=== PATIENT | male | born 1975 | race American Indian/Alaskan Native ===

== ENCOUNTER 2020-07-17 20:27 | Emergency (ER) | payer SELFPAY ==
[2020-07-17] MEDS ORDERED: ZIPRASIDONE MESYLATE 20 MG VIAL IM PRN (20:38)
[2020-07-17] MEDS ORDERED: ZIPRASIDONE MESYLATE 20 MG VIAL IM ONE (20:38)
--- NOTE | 2020-07-17 21:23 | Emergency Department Report ---
ED Psych HPI - General Chief Complaint: Psych Stated Complaint: MH Time Seen by Provider: 07/17/20 20:37 Source: patient, police Mode of arrival: Ambulatory - History of Present Illness Initial Comments: Chief complaint: "I know I just need some help." HPI: This is a 44-year-old male with history of depression and polysubstance abuse who presents with acute intoxication of cocaine. Patient called police several times to his hotel room. He had paranoia. He felt as if unknown persons were attempting to steal from him. He also had auditory visual hallucinations witnessed by police officers. He finally admitted that he had been using cocaine all day. Abnormal behavior was also witnessed by hotel staff. He attempted to throw a large trash can toward hotel personnel. Patient states that he has a long history of cocaine use. He also uses alcohol. He lives with his father who also uses drugs. He keeps saying, "I know I need some help." He has not taken any psychiatric medication for depression in quite some time. He has been living in [place] for the last 5 years. His family lives in [place]. He returned to [place] from [place] in order to live with his father. He denies suicidal homicidal ideation. He did endorse auditory and visual hallucinations. According to electronic medical record, patient was seen at this emergency department in both November and February 2015 for abnormal behavior related to alcohol and cocaine use. Complaint: altered mental status, other (Auditory visual hallucinations with paranoia delusional thought pattern) -: Sudden, This afternoon Associated Psychiatric Symptoms: racing thoughts, auditory hallucinations, visual hallucinations, delusions History of same: Yes Quality: constant Improves With: none Worsens With: none Context: recent drug abuse, not taking psychiatric Associated Symptoms: denies other symptoms Treatments Prior to Arrival: other (Police transport to the emergency department) - Related Data Home Medications Medication Instructions Recorded Confirmed Last Taken FLUoxetine [Prozac] 20 mg PO DAILY 02/19/14 02/28/15 3 Months Ago ~11/28/14 traZODone [Desyrel] 50 mg PO QHS PRN 02/19/14 02/28/15 3 Months Ago ~11/28/14 Allergies Allergy/AdvReac Type Severity Reaction Status Date / Time No Known Allergies Allergy Verified 12/08/14 20:41 ED Review of Systems ROS: Stated complaint: MH Other details as noted in HPI Comment: All other systems reviewed and negative Constitutional: denies: fever, malaise Respiratory: denies: cough, shortness of breath Cardiovascular: denies: chest pain Psychiatric: depression, auditory hallucinations, visual hallucinations. denies: homicidal thoughts, suicidal thoughts ED Past Medical Hx - Past Medical History Previous Medical History?: Yes Hx Hypertension: No Hx Heart Attack/AMI: No Hx Psychiatric Treatment: Yes (Depression-no meds) Additional medical history: kidney failure - Surgical History Past Surgical History?: No - Social History Smoking Status: Never Smoker Substance Use Type: Alcohol, Cocaine - Medications Home Medications: Home Medications Medication Instructions Recorded Confirmed Last Taken Type FLUoxetine [Prozac] 20 mg PO DAILY 02/19/14 02/28/15 3 Months Ago History ~11/28/14 traZODone [Desyrel] 50 mg PO QHS PRN 02/19/14 02/28/15 3 Months Ago History ~11/28/14 ED Physical Exam - General Limitations: No Limitations General appearance: alert, in no apparent distress, anxious, other (Restless cooperative insightful) - Head Head exam: Present: atraumatic, normocephalic - Eye Eye exam: Present: normal appearance - ENT ENT exam: Present: mucous membranes moist - Neck Neck exam: Present: normal inspection, full ROM - Respiratory Respiratory exam: Present: normal lung sounds bilaterally. Absent: respiratory distress, wheezes, rales, rhonchi - Cardiovascular Cardiovascular Exam: Present: regular rate, normal rhythm, normal heart sounds. Absent: systolic murmur, diastolic murmur, rubs, gallop - GI/Abdominal GI/Abdominal exam: Present: soft, normal bowel sounds. Absent: distended, tenderness, guarding, rebound - Rectal Rectal exam: Present: deferred - Extremities Exam Extremities exam: Present: normal inspection - Neurological Exam Neurological exam: Present: alert, oriented X3 - Psychiatric Psychiatric exam: Present: depressed, agitated, anxious - Skin Skin exam: Present: warm, intact, normal color, other (Clammy skin). Absent: rash ED Course Vital Signs 07/17/20 21:35 Temperature 99.0 F Pulse Rate 105 H Respiratory 20 Rate Blood Pressure 138/93 O2 Sat by Pulse 96 Oximetry ED Medical Decision Making - Lab Data Result diagrams: 07/17/20 21:23 07/17/20 21:23 - Medical Decision Making History of depression with psychosis current clinical impressions: acute cocaine intoxication, acute drug-induced psychosis: Patient is cooperative insightful. 1013 form has been completed in order to expedite inpatient care. Patient is medically clear for psychiatric care. I have reviewed labs including CBC chemistry serum toxicology. All within norm al limits. Patient is medically clear for psychiatric care. Critical care attestation.: If time is entered above; I have spent that time in minutes in the direct care of this critically ill patient, excluding procedure time. ED Disposition Clinical Impression: Drug-induced psychotic disorder, Polysubstance abuse, Acute hyperactive cocaine intoxication delirium Disposition: [id number]/TX-[id number] ANOTHER TYPE HLTHCARE Is pt being admited?: No Does the pt Need Aspirin: No Condition: Stable
[2020-07-17 21:34] LABS: Basophils % (Auto) 0.6 % (0.0-1.8); Hematocrit 46.3 % (35.5-45.6); Hemoglobin 15.3 gm/dl (11.8-15.2); Lymphocytes % (Auto) 15.5 % (13.4-35.0); Mean Corpuscular HGB Conc 33 % (32-34); Mean Corpuscular Volume 83 fl (84-94); Monocytes # (Auto) 0.4 K/mm3 (0.0-0.8); Monocytes % (Auto) 6.8 % (0.0-7.3); Platelet Count 267 K/mm3 (140-440); Red Blood Count 5.56 M/mm3 (3.65-5.03); Red Cell Distribution Width 15.2 % (13.2-15.2)
[2020-07-17 21:55] LABS: Alanine Aminotransferase 29 units/L (7-56); Albumin 4.8 g/dL (3.9-5); BUN/Creatinine Ratio 12; Blood Urea Nitrogen 12 mg/dL (9-20); Calcium 9.3 mg/dL (8.4-10.2); Hemolysis Index 14
[2020-07-18 08:11] LABS: Bilirubin,Urine NEG (Negative); Blood,Urine NEG (Negative); Color,Urine Yellow (Yellow); Hyaline Casts,Urine 4 /LPF; Mucus,Urine 3+ /HPF
[2020-07-18 09:35] VITALS: BP 147/85
--- NOTE | 2020-07-18 10:10 | Consultation ---
History of Present Illness - Reason for Consult Consult date: 07/18/20 Reason for consult: MHE Requesting physician: IKER MOE - History of Present Psychiatric Illness Per ED Provider: This is a 44-year-old male with history of depression and polysubstance abuse who presents with acute intoxication of cocaine. Patient called police several times to his hotel room. He had paranoia. He felt as if unknown persons were attempting to steal from him. He also had auditory visual hallucinations witnessed by police officers. He finally admitted that he had been using cocaine all day. Abnormal behavior was also witnessed by hotel staff. He attempted to throw a large trash can toward hotel personnel. Patient states that he has a long history of cocaine use. He also uses alcohol. He lives with his father who also uses drugs. He keeps saying, "I know I need some help." He has not taken any psychiatric medication for depression in quite some time. He has been living in [place] for the last 5 years. His family lives in [place]. He returned to [place] from [place] in order to live with his father. He denies suicidal homicidal ideation. He did endorse auditory and visual hallucinations. PSYCH HPI Patient is a 44-year-old employed, single -[place] male who currently resides with his dad with past psychiatric history depression in the illicit drug use with no significant past medical history who presented to the ED for mental health evaluation after patient was picked up from hotel room. Patient stated that he just recently came about some money to someone outside left behind for him, but he wanted to flex and chew and hang out with women so he got himself out of her room, cocaine, and alcohol when he began drinking started to think about his mother and then became very agitated, somewhat destructive but did not threaten anyone neither was he suicidal. Patient reported feeling fine now, stated that he supposed to be at work, denies SI, HI or AVH at this time. Acknowledge cocaine use and requesting to go home. PAST PSYCHIATRIC HISTORY Diagnoses: Depression Suicide attempts or Self-harm behavior: none reported Prior psychiatric hospitalizations: none reported Substance Abuse history: cocaine, alcohol Previous psychiatric medications tried: Prozac Outpatient treatment: none reported PAST MEDICAL HISTORY: none reported Family Psychiatric History: None reported or documented SOCIAL HISTORY Marital Status: Single Living Arrangements: with dad Employment Status: employed Access to guns/weapons: none reported Education: 9th grade History of Abuse: none reported Legal History: none reported REVIEW OF SYSTEMS Constitutional: Negative for weight loss ENT: Negative for stridor Respiratory: Negative for cough or hemoptysis All other systems reviewed and are negative MENTAL STATUS EXAMINATION General Appearance and Behavior: Age appropriate, good hygiene, wearing appropriate clothes, good eye contact, cooperative polite with questioning. Cooperation: Participating/engaged Psychomotor Behavior: unremarkable and within normal limits Mood: Good Affect and affective range: congruent with mood Thought Process: Fluent/Logical, Thought Content: Within reality, Speech: Normal volume, Regular rate and rhythm, Intellectual Functioning: Average Suicidal Ideation: Denies SI Homicidal Ideation: Denies HI Impulse Control: Unimpaired Insight and Judgment: Normal insight and judgment, Memory: Normal, Attention: Normal, Orientation: Alert, oriented, Assessment and Plan - Psychiatric problem (1) Illicit drug use Current Visit: Yes Status: Acute Treatment Plan MEDICATIONS: Risks, benefits and alternatives of medications discussed with the patient, questions answered and consent obtained from patient. PSYCHOTHERAPY: Supportive psychotherapy provided MEDICAL: Per primary team DELIRIUM PRECAUTIONS: Please re-orient patient frequently, keep lights on during the day, and minimize benzodiazepines and opiates as these medications could worsen patient's confusion. REHABILITATION CONSTRUCTION SPECIALIST: DISPOSITION: Do Not Recommend acute inpatient psychiatric hospitalization at this time. Case discussed with Dr. Alejandro who agrees with current disposition LEGAL STATUS: 1013 rescinded FOLLOW-UP: Will follow Thank you for the consult. Please contact with any questions and/or concerns. Medications and Allergies Allergies Allergy/AdvReac Type Severity Reaction Status Date / Time No Known Allergies Allergy Verified 12/08/14 20:41 Home Medications Medication Instructions Recorded Confirmed Last Taken Type FLUoxetine [Prozac] 20 mg PO DAILY 02/19/14 02/28/15 3 Months Ago History ~11/28/14 traZODone [Desyrel] 50 mg PO QHS PRN 02/19/14 02/28/15 3 Months Ago History ~11/28/14 Active Meds: Active Medications Ziprasidone (Ziprasidone Mesylate 20 Mg Vial) 10 mg IM Q2H PRN PRN Reason: Agitation Mental Status Exam - Vital signs Last Vital Signs Temp 98.2 F 07/18/20 08:57 Pulse 68 07/18/20 08:57 Resp 18 07/18/20 08:57 BP 147/85 07/18/20 08:57 Pulse Ox 98 07/18/20 08:57 Results Result Diagrams: 07/17/20 21:23 07/17/20 21:23 Abnormal lab results 07/17/20 07/17/20 07/17/20 Range/Units 21:23 21:23 21:23 RBC 5.56 H (3.65-5.03) M/mm3 Hgb 15.3 H (11.8-15.2) gm/dl Hct 46.3 H (35.5-45.6) % MCV 83 L (84-94) fl MCH 27 L (28-32) pg Lymph # (Auto) 1.0 L (1.2-5.4) K/mm3 Seg Neutrophils % 77.1 H (40.0-70.0) % Carbon Dioxide 20 L (22-30) mmol/L Urine WBC (Auto) (0.0-6.0) /HPF Salicylates < 0.3 L (2.8-20.0) mg/dL Acetaminophen (10.0-30.0) ug/mL 07/17/20 07/18/20 Range/Units 21:23 Unknown RBC (3.65-5.03) M/mm3 Hgb (11.8-15.2) gm/dl Hct (35.5-45.6) % MCV (84-94) fl MCH (28-32) pg Lymph # (Auto) (1.2-5.4) K/mm3 Seg Neutrophils % (40.0-70.0) % Carbon Dioxide (22-30) mmol/L Urine WBC (Auto) 10.0 H (0.0-6.0) /HPF Salicylates (2.8-20.0) mg/dL Acetaminophen 5.0 L (10.0-30.0) ug/mL All other labs normal. Assessment and Plan - Psychiatric problem (1) Illicit drug use Current Visit: Yes Status: Acute
[2020-07-18 11:52] LABS: Amphetamine Screen,Urine Negative; Benzodiazepines Screen,Urine Negative; Cannabinoid Screen,Urine Negative; Methadone Screen,Urine Negative; Opiate Screen,Urine Negative
[2020-07-18 12:46] LABS: Cocaine Screen,Urine PRESUMPTIVE POSITIVE
== END 2020-07-18 17:00 | disposition home or self-care (01) ==
LOC: ED 20:27 → EEVIPCON 20:27 → ED 07-18 17:00
DX: F19.10 Other psychoactive substance abuse, uncomplicated (principal); F32.9 Major depressive disorder, single episode, unspecified; F14.921 Cocaine use, unspecified with intoxication delirium; Z79.899 Other long term (current) drug therapy; Z20.822 Contact with and (suspected) exposure to COVID-19
CPT/HCPCS: 36415; 80053; 80307; 81001; 85025; 87086; 96372; 99284; J3486; U0003; 80320; G0480

== ENCOUNTER 2020-07-20 04:39 | Emergency (ER) | payer SELFPAY ==
[2020-07-20 05:14] LABS: Basophils % (Auto) 0.9 % (0.0-1.8); Eosinophils % (Auto) 0.1 % (0.0-4.3); Hematocrit 41.8 % (35.5-45.6); Hemoglobin 13.7 gm/dl (11.8-15.2); Lymphocytes # (Auto) 1.2 K/mm3 (1.2-5.4); Lymphocytes % (Auto) 23.9 % (13.4-35.0); Mean Corpuscular HGB Conc 33 % (32-34); Mean Corpuscular Volume 83 fl (84-94); Monocytes # (Auto) 0.5 K/mm3 (0.0-0.8); Platelet Count 248 K/mm3 (140-440); Red Blood Count 5.04 M/mm3 (3.65-5.03); Red Cell Distribution Width 15.2 % (13.2-15.2)
[2020-07-20 05:32] LABS: Bacteria,Urine 1+ /HPF (Negative); Mucus,Urine 3+ /HPF
[2020-07-20 05:37] LABS: Alanine Aminotransferase 27 units/L (7-56); Albumin 4.6 g/dL (3.9-5); BUN/Creatinine Ratio 12; Blood Urea Nitrogen 12 mg/dL (9-20); Calcium 9.1 mg/dL (8.4-10.2); Hemolysis Index 2
[2020-07-20 05:59] LABS: Amphetamine Screen,Urine PRESUMPTIVE NEGATIVE; Benzodiazepines Screen,Urine PRESUMPTIVE NEGATIVE; Cannabinoid Screen,Urine PRESUMPTIVE NEGATIVE; Cocaine Screen,Urine PRESUMPTIVE POSITIVE; Methadone Screen,Urine PRESUMPTIVE NEGATIVE; Opiate Screen,Urine PRESUMPTIVE NEGATIVE
[2020-07-20 06:11] LABS: Color,Urine Yellow (Yellow)
--- NOTE | 2020-07-20 06:24 | Emergency Department Report ---
ED Psych HPI - General Chief Complaint: Psych Stated Complaint: MH Time Seen by Provider: 07/20/20 06:20 Source: patient, EMS Mode of arrival: Ambulatory - History of Present Illness Initial Comments: Patient states, "I was just coming down from a cocaine high and needed a place t o rest". He has no active complaints. According to the triage note he arrived with paranoia and anxiety. He admitted to recent cocaine use. No other information is apparently available in the triage note. Patient himself has no complaints. He is mentally competent. He is oriented and aware of the context of his visit. He has no paranoid ideation, homicidal ideation or thoughts of self-harm. He is requesting discharge. Psychiatric evaluation 07/18/2020: History of Present Illness - Reason for Consult Consult date: 07/18/20 Reason for consult: MHE Requesting physician: IKER MOE - History of Present Psychiatric Illness Per ED Provider: This is a 44-year-old male with history of depression and polysubstance abuse who presents with acute intoxication of cocaine. Patient called police several times to his hotel room. He had paranoia. He felt as if unknown persons were attempting to steal from him. He also had auditory visual hallucinations witnessed by police officers. He finally admitted that he had been using cocaine all day. Abnormal behavior was also witnessed by hotel staff. He attempted to throw a large trash can toward hotel personnel. Patient states that he has a long history of cocaine use. He also uses alcohol. He lives with his father who also uses drugs. He keeps saying, "I know I need some help." He has not taken any psychiatric medication for depression in quite some time. He has been living in [place] for the last 5 years. His family lives in [place]. He returned to [place] from [place] in order to live with his father. He denies suicidal homicidal ideation. He did endorse auditory and visual hallucinations. PSYCH HPI Patient is a 44-year-old employed, single -Italian male who currently resides with his dad with past psychiatric history depression in the illicit drug use with no significant past medical history who presented to the ED for mental health evaluation after patient was picked up from hotel room. Patient stated that he just recently came about some money to someone outside left behind for him, but he wanted to flex and chew and hang out with women so he got himself out of her room, cocaine, and alcohol when he began drinking started to think about his mother and then became very agitated, somewhat destructive but did not threaten anyone neither was he suicidal. Patient reported feeling fine now, stated that he supposed to be at work, denies SI, HI or AVH at this time. Acknowledge cocaine use and requesting to go home. Complaint: other -: hour(s) Associated Psychiatric Symptoms: other (Paranoid ideations) History of same: Yes Quality: resolved prior to arrival (Resolved prior to my encounter) Improves With: none Worsens With: drug use Context: recent drug abuse Associated Symptoms: denies other symptoms Treatments Prior to Arrival: none - Related Data Home Medications Medication Instructions Recorded Confirmed Last Taken FLUoxetine [Prozac] 20 mg PO DAILY 02/19/14 02/28/15 3 Months Ago ~11/28/14 traZODone [Desyrel] 50 mg PO QHS PRN 02/19/14 02/28/15 3 Months Ago ~11/28/14 Previous Rx's Medication Instructions Recorded Last Taken Type Fluconazole [Diflucan TAB] 100 mg PO QDAY #3 tablet 07/20/20 Unknown Rx cefUROXime [Ceftin] 250 mg PO Q12H #14 tablet 07/20/20 Unknown Rx Allergies Allergy/AdvReac Type Severity Reaction Status Date / Time No Known Allergies Allergy Verified 12/08/14 20:41 ED Review of Systems ROS: Stated complaint: MH Other details as noted in HPI Constitutional: denies: chills, fever Eyes: denies: eye pain, eye discharge, vision change ENT: denies: ear pain, throat pain Respiratory: denies: cough, shortness of breath Cardiovascular: denies: chest pain, palpitations Endocrine: no symptoms reported Gastrointestinal: denies: abdominal pain, nausea, diarrhea Genitourinary: denies: urgency, dysuria Musculoskeletal: denies: back pain, joint swelling, arthralgia Skin: denies: rash, lesions Neurological: denies: headache, weakness, paresthesias Psychiatric: denies: anxiety, depression, auditory hallucinations, visual hallucinations, suicidal thoughts Hematological/Lymphatic: denies: easy bleeding, easy bruising ED Past Medical Hx - Past Medical History Previous Medical History?: Yes Hx Hypertension: No Hx Heart Attack/AMI: No Hx Psychiatric Treatment: Yes (Depression-no meds) Additional medical history: kidney failure - Surgical History Past Surgical History?: No - Social History Smoking Status: Never Smoker Substance Use Type: Cocaine - Medications Home Medications: Home Medications Medication Instructions Recorded Confirmed Last Taken Type FLUoxetine [Prozac] 20 mg PO DAILY 02/19/14 02/28/15 3 Months Ago History ~11/28/14 traZODone [Desyrel] 50 mg PO QHS PRN 02/19/14 02/28/15 3 Months Ago History ~11/28/14 Fluconazole [Diflucan TAB] 100 mg PO QDAY #3 tablet 07/20/20 Unknown Rx cefUROXime [Ceftin] 250 mg PO Q12H #14 tablet 07/20/20 Unknown Rx ED Physical Exam - General Limitations: No Limitations General appearance: alert, in no apparent distress - Head Head exam: Present: atraumatic, normocephalic - Eye Eye exam: Present: normal appearance. Absent: scleral icterus - ENT ENT exam: Present: mucous membranes moist - Neck Neck exam: Present: normal inspection - Respiratory Respiratory exam: Present: normal lung sounds bilaterally. Absent: respiratory distress - Cardiovascular Cardiovascular Exam: Present: regular rate, normal rhythm. Absent: systolic murmur, diastolic murmur, rubs, gallop - GI/Abdominal GI/Abdominal exam: Present: soft, normal bowel sounds. Absent: distended, tenderness, guarding, rebound - Rectal Rectal exam: Present: deferred - Extremities Exam Extremities exam: Present: normal inspection - Back Exam Back exam: Present: normal inspection - Neurological Exam Neurological exam: Present: alert, oriented X3, CN II-XII intact. Absent: motor sensory deficit - Psychiatric Psychiatric exam: Present: normal affect, normal mood - Skin Skin exam: Present: warm, dry, intact, normal color. Absent: rash ED Course Vital Signs 07/20/20 07/20/20 04:43 04:50 Temperature 98.9 F Pulse Rate 105 H Respiratory 18 20 Rate Blood Pressure 137/92 O2 Sat by Pulse 99 Oximetry ED Medical Decision Making - Lab Data Result diagrams: 07/20/20 04:54 07/20/20 04:54 Laboratory Results - last 24 hr 07/20/20 07/20/20 07/20/20 04:54 04:54 04:54 WBC 5.1 RBC 5.04 H Hgb 13.7 Hct 41.8 MCV 83 L MCH 27 L MCHC 33 RDW 15.2 Plt Count 248 Lymph % (Auto) 23.9 Kimball % (Auto) 10.0 H Eos % (Auto) 0.1 Baso % (Auto) 0.9 Lymph # (Auto) 1.2 Kimball # (Auto) 0.5 Eos # (Auto) 0.0 Baso # (Auto) 0.0 Seg Neutrophils % 65.1 Seg Neutrophils # 3.3 Sodium 142 Potassium 3.8 Chloride 101.6 Carbon Dioxide 23 Anion Gap 21 BUN 12 Creatinine 1.0 Estimated GFR > 60 BUN/Creatinine Ratio 12 Glucose 91 Calcium 9.1 Total Bilirubin 0.50 AST 29 ALT 27 Alkaline Phosphatase 97 Total Protein 7.2 Albumin 4.6 Albumin/Globulin Ratio 1.8 Urine Color Urine Turbidity Urine pH Ur Specific Lena Urine Protein Urine Glucose (UA) Urine Ketones Urine Nitrite Ur Reducing Substances Urine Bilirubin Urine Ictotest Urine Urobilinogen Ur Leukocyte Esterase Urine WBC (Auto) Urine RBC (Auto) U Epithel Cells (Auto) Urine Bacteria (Auto) Urine WBC Clumps Urine Mucus Urine Yeast (Budding) Salicylates < 0.3 L Urine Opiates Screen Urine Methadone Screen Acetaminophen Ur Barbiturates Screen Ur Phencyclidine Scrn Ur Amphetamines Screen U Benzodiazepines Scrn Urine Cocaine Screen U Marijuana (THC) Screen Drugs of Abuse Note Plasma/Serum Alcohol 07/20/20 07/20/20 07/20/20 04:54 04:54 04:57 WBC RBC Hgb Hct MCV MCH MCHC RDW Plt Count Lymph % (Auto) Kimball % (Auto) Eos % (Auto) Baso % (Auto) Lymph # (Auto) Kimball # (Auto) Eos # (Auto) Baso # (Auto) Seg Neutrophils % Seg Neutrophils # Sodium Potassium Chloride Carbon Dioxide Anion Gap BUN Creatinine Estimated GFR BUN/Creatinine Ratio Glucose Calcium Total Bilirubin AST ALT Alkaline Phosphatase Total Protein Albumin Albumin/Globulin Ratio Urine Color Yellow Urine Turbidity Turbid Urine pH Not Reportable Ur Specific Lena Hatch Supervisor Urine Protein Not Reportable Urine Glucose (UA) Not Reportable Urine Ketones Not Reportable Urine Nitrite Not Reportable Ur Reducing Substances Not Reportable Urine Bilirubin Hatch Supervisor Urine Ictotest Not Reportable Urine Urobilinogen Not Reportable Ur Leukocyte Esterase Not Reportable Urine WBC (Auto) 9.0 H Urine RBC (Auto) 2.0 U Epithel Cells (Auto) < 1.0 Urine Bacteria (Auto) 1+ Urine WBC Clumps 3+ Urine Mucus 3+ Urine Yeast (Budding) 1+ Salicylates Urine Opiates Screen Urine Methadone Screen Acetaminophen 5.0 L Ur Barbiturates Screen Ur Phencyclidine Scrn Ur Amphetamines Screen U Benzodiazepines Scrn Urine Cocaine Screen U Marijuana (THC) Screen Drugs of Abuse Note Plasma/Serum Alcohol 0.05 07/20/20 04:57 WBC RBC Hgb Hct MCV MCH MCHC RDW Plt Count Lymph % (Auto) Kimball % (Auto) Eos % (Auto) Baso % (Auto) Lymph # (Auto) Kimball # (Auto) Eos # (Auto) Baso # (Auto) Seg Neutrophils % Seg Neutrophils # Sodium Potassium Chloride Carbon Dioxide Anion Gap BUN Creatinine Estimated GFR BUN/Creatinine Ratio Glucose Calcium Total Bilirubin AST ALT Alkaline Phosphatase Total Protein Albumin Albumin/Globulin Ratio Urine Color Urine Turbidity Urine pH Ur Specific Lena Urine Protein Urine Glucose (UA) Urine Ketones Urine Nitrite Ur Reducing Substances Urine Bilirubin Urine Ictotest Urine Urobilinogen Ur Leukocyte Esterase Urine WBC (Auto) Urine RBC (Auto) U Epithel Cells (Auto) Urine Bacteria (Auto) Urine WBC Clumps Urine Mucus Urine Yeast (Budding) Salicylates Urine Opiates Screen Presumptive negative Urine Methadone Screen Presumptive negative Acetaminophen Ur Barbiturates Screen Presumptive negative Ur Phencyclidine Scrn Presumptive negative Ur Amphetamines Screen Presumptive negative U Benzodiazepines Scrn Presumptive negative Urine Cocaine Screen Presumptive positive U Marijuana (THC) Screen Presumptive negative Drugs of Abuse Note Disclamer Plasma/Serum Alcohol Critical care attestation.: If time is entered above; I have spent that time in minutes in the direct care of this critically ill patient, excluding procedure time. ED Disposition Clinical Impression: Cocaine abuse with cocaine-induced mood disorder, Yeast detected UTI (urinary tract infection) Qualifiers: Urinary tract infection type: site unspecified Hematuria presence: without hematuria Qualified Code(s): N39.0 - Urinary tract infection, site not specified Disposition: - TO HOME OR SELFCARE Is pt being admited?: No Does the pt Need Aspirin: No Condition: Stable Instructions: Urinary Tract Infection, Adult, [id number], Substance Use Disorder Additional Instructions: It does appear you have a urinary tract infection and some yeast. I am going to prescribe medicine for that. Follow-up on your urine culture at the [facility]. This will be ready in 23 days. Obviously avoid cocaine abuse. Medication as directed. See outpatient resources. Prescriptions: cefUROXime [Ceftin] 250 mg PO Q12H #14 tablet Fluconazole [Diflucan TAB] 100 mg PO QDAY #3 tablet Referrals: [facility] [Provider Group] - 3-5 Days [facility] [Outside] - 3-5 Days [facility] [Outside] - 3-5 Days [facility], [Primary Care Provider] - 2-3 Days
[2020-07-20 07:06] VITALS: BP 136/89
== END 2020-07-20 07:06 | disposition home or self-care (01) ==
LOC: ED 04:39
DX: F14.14 Cocaine abuse with cocaine-induced mood disorder (principal); N39.0 Urinary tract infection, site not specified; B37.9 Candidiasis, unspecified; F32.9 Major depressive disorder, single episode, unspecified; Z79.899 Other long term (current) drug therapy
CPT/HCPCS: 36415; 80053; 80307; 80320; 81001; 85025; 87086; G0480

== ENCOUNTER 2021-02-21 05:09 | Emergency (ER) | payer SELFPAY ==
--- NOTE | 2021-02-21 07:06 | Emergency Department Report ---
HPI - General Chief Complaint: Psych Time Seen by Provider: 02/21/21 06:16 - HPI HPI: Room 12 The patient is a 45-year-old male present with a chief complaint of suicidal ideation. Patient states he is felt suicidal for several weeks stating "I just want to ." Patient attributes his addiction to alcohol as well as poor relationship with his father to his current depression. Patient states he has not taken his medication for depression for approximately 6 months. Patient denies any attempts at harming himself but states on the way to the emergency department he had thoughts of jumping off of the bridge. Patient denies history of fever. ED Past Medical Hx - Past Medical History Hx Psychiatric Treatment: Yes (Depression-no meds) Additional medical history: kidney failure - Surgical History Past Surgical History?: No - Family History Family history: no significant - Social History Smoking Status: Never Smoker Substance Use Type: Alcohol (Daily), Cocaine - Medications Home Medications: Home Medications Medication Instructions Recorded Confirmed Last Taken Type FLUoxetine [Prozac] 20 mg PO DAILY 02/19/14 02/28/15 3 Months Ago History ~11/28/14 traZODone [Desyrel] 50 mg PO QHS PRN 02/19/14 02/28/15 3 Months Ago History ~11/28/14 Fluconazole [Diflucan TAB] 100 mg PO QDAY #3 tablet 07/20/20 Unknown Rx cefUROXime [Ceftin] 250 mg PO Q12H #14 tablet 07/20/20 Unknown Rx ED Review of Systems ROS: Stated complaint: MH Other details as noted in HPI Constitutional: denies: fever Eyes: denies: eye pain ENT: denies: throat pain Respiratory: no symptoms reported Cardiovascular: denies: chest pain Endocrine: no symptoms reported Gastrointestinal: denies: abdominal pain Genitourinary: denies: dysuria Musculoskeletal: denies: back pain Neurological: denies: headache Psychiatric: depression, suicidal thoughts Physical Exam - Physical Exam Vital Signs: Vital Signs 02/21/21 05:25 Temperature 98.8 F Pulse Rate 102 H Respiratory 16 Rate Blood Pressure 115/90 [Right] O2 Sat by Pulse 97 Oximetry Physical Exam: GENERAL: The patient is well-developed well-nourished male lying on stretcher not appearing to be in acute distress. [] HEENT: Normocephalic. Atraumatic. Extraocular motions are intact. Patient has moist mucous membranes. NECK: Supple. Trachea midline CHEST/LUNGS: Clear to auscultation. There is no respiratory distress noted. HEART/CARDIOVASCULAR: Regular. There is no tachycardia. There is no gallop rub or murmur. ABDOMEN: Abdomen is soft, nontender. Patient has normal bowel sounds. There is no abdominal distention. SKIN: There is no rash. There is no edema. There is no diaphoresis. NEURO: The patient is awake, alert, and oriented. The patient is cooperative. The patient has no focal neurologic deficits. The patient has normal speech. GCS 15 MUSCULOSKELETAL: There is no evidence of acute injury. ED Course Vital Signs 02/21/21 05:25 Temperature 98.8 F Pulse Rate 102 H Respiratory 16 Rate Blood Pressure 115/90 [Right] O2 Sat by Pulse 97 Oximetry ED Medical Decision Making - Differential Diagnosis Suicidal ideation, depression, alcohol abuse Critical care attestation.: If time is entered above; I have spent that time in minutes in the direct care of this critically ill patient, excluding procedure time. ED Disposition Clinical Impression: Suicidal ideation Disposition: [address] [place] [address] Is pt being admited?: No Does the pt Need Aspirin: No Condition: Stable Referrals: PRIMARY CARE, [Primary Care Provider] - 3-5 Days
[2021-02-21 07:45] LABS: Basophils # (Auto) 0.1 K/mm3 (0.0-0.1); Basophils % (Auto) 1.4 % (0.0-1.8); Eosinophils % (Auto) 0.2 % (0.0-4.3); Hematocrit 49.4 % (35.5-45.6); Hemoglobin 15.8 gm/dl (11.8-15.2); Lymphocytes # (Auto) 1.5 K/mm3 (1.2-5.4); Lymphocytes % (Auto) 18.9 % (13.4-35.0); Mean Corpuscular HGB Conc 32 % (32-34); Mean Corpuscular Volume 84 fl (84-94); Monocytes # (Auto) 0.5 K/mm3 (0.0-0.8); Monocytes % (Auto) 6.1 % (0.0-7.3); Platelet Count 336 K/mm3 (140-440)
[2021-02-21 08:08] LABS: Alanine Aminotransferase 24 units/L (7-56); Albumin 4.1 g/dL (3.9-5); BUN/Creatinine Ratio 11; Blood Urea Nitrogen 12 mg/dL (9-20); Calcium 9.4 mg/dL (8.4-10.2); Hemolysis Index 5
--- NOTE | 2021-02-21 10:47 | Consultation ---
History of Present Illness - Reason for Consult Consult date: 02/21/21 Reason for consult: SI, illicit drug use, ETOH dependence - History of Present Psychiatric Illness The patient is a 45y/o male patient. He says he is SI/HI about life in general. The patient is whispering and is barely audible. He says he uses cocaine and alcohol. The patient says he moved from [place] to help his father but his father is still doing drugs. He says "I'm going to if I gotta live like this." The patient says "I'm gone take my life. I can't take it any more." He says he drinks a 30 pack of beer a day, with his last drink being right before he came in to the hospital. He says he plans to jump off a bridge. He says he's been off his meds for about 6 months and has a history of bipolar and schizophrenia. The patient says "I work 05/11 but can't hold money because of the drugs and alcohol." He says he's homicidal against his dad and his girlfriend. PAST PSYCHIATRIC HISTORY: Diagnoses: Bipolar, schizophrenia Suicide attempts or Self-harm behavior: Denies Prior psychiatric hospitalizations: Yes Substance Abuse history: cocaine, alcohol Previous psychiatric medications tried: zoloft, gabapentin, vistaril Outpatient treatment: Denies PAST MEDICAL HISTORY: None reported or document Family Psychiatric History: None reported or documented SOCIAL HISTORY Marital Status: Single Living Arrangements: Lives with dad Employment Status: Disabled Access to guns/weapons: Denies Education: History of Abuse: Denies Legal History: Denies REVIEW OF SYSTEMS Constitutional: Negative for weight loss ENT: Negative for stridor Respiratory: Negative for cough or hemoptysis All other systems reviewed and are negative MENTAL STATUS EXAMINATION General Appearance and Behavior: Age appropriate, good hygiene, wearing appro priate clothes. anxious, cooperative Cooperation: cooperative Psychomotor Behavior: Psychomotor normal Mood: depressed Affect and affective range: congruent with stated mood Thought Process: goal directed Thought Content: hopelessness Speech: Normal volume, Regular rate and rhythm, Suicidal Ideation: yes Homicidal Ideation: yes Hallucinations: Denies Delusions: none elicited Impulse Control: impaired Insight and Judgment: Limited Memory: limited Attention: Attentive Orientation: alert and oriented Assessment and Plan (1) Schizophrenia Treatment Plan 1013 Start Trazodone 50mg po qhs Start Zoloft 25mg po daily Start Olanzapine 5mg po daily Sitter: per primary Medical: per primary Disposition: Recommend acute psychiatric inpatient treatment Will follow. Thanks for this consult. Case staffed with Dr. Alejandro Medications and Allergies Allergies Allergy/AdvReac Type Severity Reaction Status Date / Time No Known Allergies Allergy Verified 12/08/14 20:41 Home Medications Medication Instructions Recorded Confirmed Last Taken Type FLUoxetine [Prozac] 20 mg PO DAILY 02/19/14 02/28/15 3 Months Ago History ~11/28/14 traZODone [Desyrel] 50 mg PO QHS PRN 02/19/14 02/28/15 3 Months Ago History ~11/28/14 Fluconazole [Diflucan TAB] 100 mg PO QDAY #3 tablet 07/20/20 Unknown Rx cefUROXime [Ceftin] 250 mg PO Q12H #14 tablet 07/20/20 Unknown Rx Mental Status Exam - Vital signs Last Vital Signs Temp 97.8 F 02/21/21 08:26 Pulse 92 H 02/21/21 08:26 Resp 20 02/21/21 08:26 BP 112/85 02/21/21 08:26 Pulse Ox 100 02/21/21 08:26 Results Result Diagrams: 02/21/21 07:25 02/21/21 07:25 Abnormal lab results 02/21/21 02/21/21 02/21/21 Range/Units 07:25 07:25 07:25 RBC 5.90 H (3.65-5.03) M/mm3 Hgb 15.8 H (11.8-15.2) gm/dl Hct 49.4 H (35.5-45.6) % MCH 27 L (28-32) pg Seg Neutrophils % 73.4 H (40.0-70.0) % Sodium 136 L (137-145) mmol/L Glucose 105 H (75-100) mg/dL Salicylates < 0.3 L (2.8-20.0) mg/dL Acetaminophen (10.0-30.0) ug/mL 02/21/21 Range/Units 07:25 RBC (3.65-5.03) M/mm3 Hgb (11.8-15.2) gm/dl Hct (35.5-45.6) % MCH (28-32) pg Seg Neutrophils % (40.0-70.0) % Sodium (137-145) mmol/L Glucose (75-100) mg/dL Salicylates (2.8-20.0) mg/dL Acetaminophen 5.0 L (10.0-30.0) ug/mL All other labs normal.
[2021-02-21] MEDS: SERTRALINE 25 MG TAB PO SCH (13:13)
[2021-02-21 18:43] LABS: Bilirubin,Urine NEG (Negative); Blood,Urine NEG (Negative); Color,Urine Yellow (Yellow); Mucus,Urine FEW /HPF; Protein,Urine <15 mg/dL mg/dL (Negative); RBC,Urine < 1.0 /HPF (0.0-6.0); Urobilinogen,Urine < 2.0 mg/dL (<2.0)
[2021-02-21 18:48] LABS: WBC,Urine < 1.0 /HPF (0.0-6.0)
[2021-02-21 18:49] LABS: Amphetamine Screen,Urine Negative; Benzodiazepines Screen,Urine Negative; Cannabinoid Screen,Urine Negative; Methadone Screen,Urine Negative; Opiate Screen,Urine Negative
[2021-02-21 19:41] LABS: Cocaine Screen,Urine Positive
[2021-02-21] MEDS: DOXEPIN 10 MG CAP PO SCH (22:15)
[2021-02-22] MEDS: SERTRALINE 25 MG TAB PO SCH (11:05)
--- NOTE | 2021-02-22 14:01 | Progress Note ---
Subjective - Reason for Consult Consult date: 02/22/21 Reason for consult: SI - Chief Complaint Chief complaint: The patient is calm, and cooperative. He endorses SI with a plan to jump into traffic. He says "I'm not going to live like this." He denies hallucinations. REVIEW OF SYSTEMS Constitutional: Negative for weight loss ENT: Negative for stridor Respiratory: Negative for cough or hemoptysis All other systems reviewed and are negative MENTAL STATUS EXAMINATION General Appearance and Behavior: Age appropriate, good hygiene, wearing appropriate clothes. anxious, cooperative Cooperation: cooperative Psychomotor Behavior: Psychomotor normal Mood: depressed Affect and affective range: congruent with stated mood Thought Process: goal directed Thought Content: hopelessness Speech: Normal volume, Regular rate and rhythm, Suicidal Ideation: yes Homicidal Ideation: yes Hallucinations: Denies Delusions: none elicited Impulse Control: impaired Insight and Judgment: Limited Memory: limited Attention: Attentive Orientation: alert and oriented Assessment and Plan (1) Schizophrenia Treatment Plan 1013 Continue Trazodone 50mg po qhs Continue Zoloft 25mg po daily Continue Olanzapine 5mg po daily Sitter: per primary Medical: per primary Disposition: Recommend acute psychiatric inpatient treatment Will follow. Thanks for this consult. Case staffed with Dr. Alejandro Mental Status Exam - Vital signs Last Vital Signs Temp 99.2 F 02/22/21 09:34 Pulse 88 02/22/21 09:34 Resp 18 02/22/21 09:34 BP 104/71 02/22/21 09:34 Pulse Ox 100 02/22/21 09:34
--- NOTE | 2021-02-22 17:59 | Event Note ---
Date: 02/22/21 Patient stable. No overnight events. Patient endorses suicidal ideations. Continue 1013. Awaiting inpatient psychiatric placement.
[2021-02-22] MEDS ORDERED: IBUPROFEN 400 MG TAB PO ONE (20:51)
[2021-02-22] MEDS: DOXEPIN 10 MG CAP PO SCH (22:18)
[2021-02-23 07:19] VITALS: BP 129/88
== END 2021-02-23 09:01 ==
LOC: ED 05:09 → EEVIPCON 05:09 → ED 02-23 09:01
DX: F20.9 Schizophrenia, unspecified (principal); R45.851 Suicidal ideations; F14.10 Cocaine abuse, uncomplicated; Z20.822 Contact with and (suspected) exposure to COVID-19
CPT/HCPCS: 36415; 80053; 80307; 81001; 85025; 99285; U0003; 80320; G0480

== ENCOUNTER 2021-04-21 23:41 | Emergency (ER) | payer SELFPAY ==
[2021-04-21] MEDS ORDERED: IBUPROFEN 800 MG TAB PO ONE (23:45)
--- NOTE | 2021-04-22 00:18 | XRay Report ---
Right leg-4 views INDICATION: INJURY. COMPARISON: None available. IMPRESSION: No acute osseous abnormality. Normal alignment. No significant DJD. Soft tissues are u nremarkable. Signer Name: Ash Donovan MD Signed: 04/22/2021 12:14 AM Workstation Name: [id number]
--- NOTE | 2021-04-22 05:07 | Event Note ---
ED Screening Note Date of service: 04/22/21 Time: 05:05 ED Screening Note: Patient is a 45-year-old -Malagasy male with a history of anxiety and depression, paranoid schizophrenia and chronic illegal drug abuse who presented to the ED with complaint of suicidal ideation, with a plan to jump off the bridge or run into traffic to kill himself. Patient states that he has not been on his medications which include Seroquel and Vistaril for over 6 months. Patient also complains of anterior right lower leg pain after he bumped the same again some boxes at work over 12 hours ago. Patient denies chest pain or shortness of breath, nausea, vomiting, dizziness, syncope, cough, sore throat, hallucinations, change in vision or back pain. This initial assessment/diagnostic orders/clinical plan/treatment(s) is/are subject to change based on patients health status, clinical progression and re- assessment by fellow clinical providers in the ED. Further treatment and workup at subsequent clinical providers discretion. Patient/guardian urged not to elope from the ED as their condition may be serious if not clinically assessed and managed. Initial orders include: CBC, CMP, UA, UDS, blood alcohol, acetaminophen, salicylate
[2021-04-22 06:08] LABS: Basophils # (Auto) 0.1 K/mm3 (0.0-0.1); Basophils % (Auto) 0.8 % (0.0-1.8); Eosinophils % (Auto) 0.2 % (0.0-4.3); Hematocrit 40.1 % (35.5-45.6); Lymphocytes # (Auto) 1.6 K/mm3 (1.2-5.4); Lymphocytes % (Auto) 20.6 % (13.4-35.0); Mean Corpuscular HGB Conc 32 % (32-34); Mean Corpuscular Volume 83 fl (84-94); Monocytes # (Auto) 0.7 K/mm3 (0.0-0.8); Monocytes % (Auto) 8.8 % (0.0-7.3); Platelet Count 259 K/mm3 (140-440); Red Blood Count 4.83 M/mm3 (3.65-5.03); Red Cell Distribution Width 14.9 % (13.2-15.2)
[2021-04-22 06:25] LABS: Alanine Aminotransferase 66 units/L (7-56); Albumin 4.3 g/dL (3.9-5); BUN/Creatinine Ratio 14; Blood Urea Nitrogen 11 mg/dL (9-20); Calcium 8.9 mg/dL (8.4-10.2); Hemolysis Index 3
--- NOTE | 2021-04-22 09:44 | Emergency Department Report ---
ED Psych HPI - General Chief Complaint: Extremity Injury, Lower Stated Complaint: LEG PAIN Time Seen by Provider: 04/22/21 08:09 Source: patient Mode of arrival: Ambulatory - History of Present Illness Initial Comments: Patient is a 45-year-old -Comor[place] male with a history of anxiety and depression, paranoid schizophrenia and chronic illegal drug abuse who presented to the ED with complaint of suicidal ideation, with a plan to jump off the bridge or run into traffic to kill himself. Patient states that he has not been on his medications which include Seroquel and Vistaril for over 6 months. Patient also complains of anterior right lower leg pain after he bumped the same again some boxes at work over 12 hours ago. Patient denies chest pain or shortness of breath, nausea, vomiting, dizziness, syncope, cough, sore throat, hallucinations, change in vision or back pain. MD Complaint: suicidal ideation -: days(s) Associated Psychiatric Symptoms: depression, suicidal ideation - Related Data Home Medications Medication Instructions Recorded Confirmed Last Taken No Known Home Medications [No 04/22/21 04/22/21 Unknown Reported Home Medications] Allergies Allergy/AdvReac Type Severity Reaction Status Date / Time No Known Allergies Allergy Verified 04/22/21 13:52 ED Review of Systems ROS: Stated complaint: LEG PAIN Other details as noted in HPI Comment: All other systems reviewed and negative Constitutional: denies: chills, fever Cardiovascular: denies: chest pain Gastrointestinal: denies: abdominal pain, nausea, vomiting Musculoskeletal: myalgia Neurological: denies: headache, weakness, numbness, paresthesias Psychiatric: depression, auditory hallucinations, suicidal thoughts. denies: homicidal thoughts ED Past Medical Hx - Past Medical History Previous Medical History?: Yes Hx Hypertension: No Hx Heart Attack/AMI: No Hx Psychiatric Treatment: Yes (Depression-no meds) Additional medical history: kidney failure - Surgical History Past Surgical History?: No - Social History Smoking Status: Never Smoker Substance Use Type: Alcohol (Daily), Cocaine - Medications Home Medications: Home Medications Medication Instructions Recorded Confirmed Last Taken Type No Known Home Medications [No 04/22/21 04/22/21 Unknown History Reported Home Medications] ED Physical Exam - General Limitations: No Limitations General appearance: alert, in no apparent distress - Head Head exam: Present: atraumatic, normocephalic, normal inspection - ENT ENT exam: Present: normal exam, normal orophraynx, mucous membranes moist - Neck Neck exam: Present: normal inspection, full ROM. Absent: tenderness, meningismus - Respiratory Respiratory exam: Present: normal lung sounds bilaterally - Cardiovascular Cardiovascular Exam: Present: regular rate, normal rhythm, normal heart sounds - GI/Abdominal GI/Abdominal exam: Present: soft, normal bowel sounds. Absent: distended, tenderness, guarding, rebound, rigid, organomegaly, mass, bruit, pulsatile mass, hernia - Extremities Exam Extremities exam: Present: normal inspection, full ROM, normal capillary refill. Absent: tenderness - Back Exam Back exam: Present: normal inspection, full ROM. Absent: CVA tenderness (R), CVA tenderness (L) - Neurological Exam Neurological exam: Present: alert, oriented X3, CN II-XII intact - Psychiatric Psychiatric exam: Present: suicidal ideation. Absent: agitated, homicidal ideation - Skin Skin exam: Present: warm, intact, normal color ED Course Vital Signs 04/21/21 04/22/21 04/22/21 23:44 09:17 09:33 Temperature 98.6 F 98.4 F Pulse Rate 114 H 94 H Respiratory 18 18 18 Rate Blood Pressure 149/94 Blood Pressure 116/69 [Left] O2 Sat by Pulse 96 98 98 Oximetry 04/22/21 04/22/21 04/23/21 16:46 19:57 02:40 Temperature 98.8 F 98.6 F Pulse Rate 75 84 78 Respiratory 18 18 16 Rate Blood Pressure Blood Pressure 126/66 109/72 99/64 [Left] O2 Sat by Pulse 96 96 95 Oximetry ED Medical Decision Making - Lab Data Result diagrams: 04/22/21 05:50 04/22/21 05:50 - Radiology Data Radiology results: report reviewed - Medical Decision Making Patient is a 45-year-old -Comor[place] male with a history of anxiety and depression, paranoid schizophrenia and chronic illegal drug abuse who presented to the ED with complaint of suicidal ideation, with a plan to jump off the bridge or run into traffic to kill himself. Patient states that he has not been on his medications which include Seroquel and Vistaril for over 6 months. Patient also complains of anterior right lower leg pain after he bumped the same again some boxes at work over 12 hours ago. Patient denies chest pain or shortness of breath, nausea, vomiting, dizziness, syncope, cough, sore throat, hallucinations, change in vision or back pain. Right tibia and fibula x-ray is negative for acute finding. Labs reviewed and is unremarkable. Patient is medically cleared to be evaluated by our psychiatric team. Critical care attestation.: If time is entered above; I have spent that time in minutes in the direct care of this critically ill patient, excluding procedure time. ED Disposition Clinical Impression: Schizophrenia, Illicit drug use, Suicidal ideation, Contusion of right leg Disposition: [address] [place] [address] Is pt being admited?: No Condition: Stable Referrals: DELBERT HENSLEY MD [Primary Care Provider] - 3-5 Days
--- NOTE | 2021-04-22 12:30 | Consultation ---
History of Present Illness - Reason for Consult Consult date: 04/22/21 Reason for consult: suicidal - History of Present Psychiatric Illness ED Note: Patient is a 45-year-old -Azerbaijani male with a history of anxiety and depression, paranoid schizophrenia and chronic illegal drug abuse who presented to the ED with complaint of suicidal ideation, with a plan to jump off the bridge or run into traffic to kill himself. Patient states that he has not been on his medications which include Seroquel and Vistaril for over 6 months. Patient also complains of anterior right lower leg pain after he bumped the same again some boxes at work over 12 hours ago. Patient denies chest pain or shortness of breath, nausea, vomiting, dizziness, syncope, cough, sore throat, hallucinations, change in vision or back pain. The patient is a 45 year year old male with history of depression, anxiety disorder, paranoid schizophrenia. The patient states he was overwhelmed and has being having suicidal thoughts for the past one month. He reports stressors such as " relationships, family, things not going right." The patient reports feeling paranoid " I feel like people are out to get me. " He endorses suicidal ideation with a plan to " blow my brains out." He denies hallucinations. PAST PSYCHIATRIC HISTORY: Diagnoses: Depression, Anxiety, paranoid schizophrenia Suicide attempts or Self-harm behavior: Yes Prior psychiatric hospitalizations: Yes Substance Abuse history: Cocaine, Alcohol Previous psychiatric medications tried:Zoloft, Vistaril Outpatient treatment:unknown PAST MEDICAL HISTORY: Family Psychiatric History: None reported or documented SOCIAL HISTORY Marital Status: Single Living Arrangements: Lives with father Employment Status: Employed Access to guns/weapons: Yes Education: 9th grade History of Abuse: n/a Legal History:Unknown REVIEW OF SYSTEMS Constitutional: Negative for weight loss ENT: Negative for stridor Respiratory: Negative for cough or hemoptysis All other systems reviewed and are negative MENTAL STATUS EXAMINATION General Appearance and Behavior: Age appropriate, good hygiene, wearing appropriate clothes, uncooperative polite with questioning. Cooperation: cooperative Psychomotor Behavior: Psychomotor agitation Mood:Depressed Affect and affective range: congruent Thought Process:Goal oriented Thought Content: suicidal Speech:Normal Intellectual Functioning: Average Suicidal Ideation:Yes Homicidal Ideation: Denied hallucination: Denied Impulse Control:Questionable Insight and Judgment:limited insight and poor judgment Memory: Intact Attention:Distractible Orientation: Alert and oriented Diagnoses: (1) Major depressive disorder Treatment Plan: Continue - Home Medications. Start Zoloft 25mg po daily Start Trazodone 50mg po QHS Patient should be compliant with medications and not to use drugs and not to drink alcohol. PSYCHOTHERAPY: Supportive psychotherapy provided MEDICAL: Per primary team DELIRIUM PRECAUTIONS: Please re-orient patient frequently, keep lights on during the day, and minimize benzodiazepines and opiates as these medications could worsen patient's confusion. CLINICAL PROVIDER TRAINER: Per medical team DISPOSITION: Recommend acute inpatient psychiatric hospitalization at this time FOLLOW-UP: Will follow. Thank you for the consult. Please contact with any questions and/or concerns. Medications and Allergies Allergies Allergy/AdvReac Type Severity Reaction Status Date / Time No Known Allergies Allergy Verified 12/08/14 20:41 Home Medications Medication Instructions Recorded Confirmed Last Taken Type FLUoxetine [Prozac] 20 mg PO DAILY 02/19/14 02/28/15 3 Months Ago History ~11/28/14 traZODone [Desyrel] 50 mg PO QHS PRN 02/19/14 02/28/15 3 Months Ago History ~11/28/14 Fluconazole [Diflucan TAB] 100 mg PO QDAY #3 tablet 07/20/20 Unknown Rx cefUROXime [Ceftin] 250 mg PO Q12H #14 tablet 07/20/20 Unknown Rx Mental Status Exam - Vital signs Last Vital Signs Temp 98.4 F 04/22/21 09:17 Pulse 94 H 04/22/21 09:17 Resp 18 04/22/21 09:33 BP 116/69 04/22/21 09:17 Pulse Ox 98 04/22/21 09:33 Results Result Diagrams: 04/22/21 05:50 04/22/21 05:50 Abnormal lab results 04/22/21 04/22/21 04/22/21 Range/Units 05:50 05:50 05:50 MCV 83 L (84-94) fl MCH 27 L (28-32) pg [place] % (Auto) 8.8 H (0.0-7.3) % Sodium 136 L (137-145) mmol/L Glucose 102 H (75-100) mg/dL ALT 66 H (7-56) units/L Salicylates < 0.3 L (2.8-20.0) mg/dL Acetaminophen (10.0-30.0) ug/mL 04/22/21 Range/Units 05:50 MCV (84-94) fl MCH (28-32) pg [place] % (Auto) (0.0-7.3) % Sodium (137-145) mmol/L Glucose (75-100) mg/dL ALT (7-56) units/L Salicylates (2.8-20.0) mg/dL Acetaminophen 5.0 L (10.0-30.0) ug/mL All other labs normal.
[2021-04-22] MEDS ORDERED: SERTRALINE 25 MG TAB PO SCH (13:00)
[2021-04-22 13:06] LABS: Amphetamine Screen,Urine Negative; Benzodiazepines Screen,Urine Negative; Cannabinoid Screen,Urine Negative; Methadone Screen,Urine Negative; Opiate Screen,Urine Negative
[2021-04-22 13:17] LABS: Amorphous Crystals,Urine Few; Bacteria,Urine 1+ /HPF (Negative); Bilirubin,Urine NEG (Negative); Blood,Urine NEG (Negative); Color,Urine Yellow (Yellow); Protein,Urine <15 mg/dL mg/dL (Negative); Urobilinogen,Urine < 2.0 mg/dL (<2.0); WBC,Urine < 1.0 /HPF (0.0-6.0)
[2021-04-22 13:20] LABS: Cocaine Screen,Urine Positive
--- NOTE | 2021-04-22 20:33 | Event Note ---
Date: 04/22/21 45-year-old male here with acute psychosis/SI. He was seen by my colleague and was medically cleared for psychiatric evaluation and placement as necessary. Vital signs reviewed and are stable. There were no acute events overnight. He was seen by the mental health/psychiatry team today who recommended acute inpatient treatment. Currently awaiting inpatient facility placement.
[2021-04-22] MEDS ORDERED: traZODone 50 MG TAB PO SCH (22:00)
[2021-04-23 02:52] VITALS: BP 99/64
--- NOTE | 2021-04-23 10:34 | Progress Note ---
Subjective - Reason for Consult Consult date: 04/23/21 Reason for consult: suicidal ideation - Chief Complaint Chief complaint: The patient was seen today. He continues to endorse depression and suicidal ideation with a plan to shoot himself. REVIEW OF SYSTEMS Constitutional: Negative for weight loss ENT: Negative for stridor Respiratory: Negative for cough or hemoptysis All other systems reviewed and are negative MENTAL STATUS EXAMINATION General Appearance and Behavior: Age appropriate, good hygiene, wearing appropriate clothes, uncooperative polite with questioning. Cooperation: cooperative Psychomotor Behavior: Psychomotor agitation Mood:Depressed Affect and affective range: congruent Thought Process:Goal oriented Thought Content: suicidal Speech:Normal Intellectual Functioning: Average Suicidal Ideation:Yes Homicidal Ideation: Denied hallucination: Denied Impulse Control:Questionable Insight and Judgment:limited insight and poor judgment Memory: Intact Attention:Distractible Orientation: Alert and oriented Diagnoses: (1) Major depressive disorder Treatment Plan: Continue - Home Medications. Start Zoloft 25mg po daily Start Trazodone 50mg po QHS Patient should be compliant with medications and not to use drugs and not to drink alcohol. PSYCHOTHERAPY: Supportive psychotherapy provided MEDICAL: Per primary team DELIRIUM PRECAUTIONS: Please re-orient patient frequently, keep lights on during the day, and minimize benzodiazepines and opiates as these medications could worsen patient's confusion. SPECIAL EVENTS DIRECTOR: Per medical team DISPOSITION: Recommend acute inpatient psychiatric hospitalization at this time FOLLOW-UP: Will follow. Thank you for the consult. Please contact with any questions and/or concerns. Medications and Allergies Mental Status Exam - Vital signs Last Vital Signs Temp 98.6 F 04/23/21 02:40 Pulse 78 04/23/21 02:40 Resp 16 04/23/21 02:40 BP 99/64 04/23/21 02:40 Pulse Ox 95 04/23/21 02:40
== END 2021-04-23 14:51 ==
LOC: ED 23:41
DX: S80.11XA Contusion of right lower leg, initial encounter (principal); F20.9 Schizophrenia, unspecified; R45.851 Suicidal ideations; X58.XXXA Exposure to other specified factors, initial encounter; Y93.9 Activity, unspecified; Y92.89 Other specified places as the place of occurrence of the external cause; Y99.8 Other external cause status; F14.10 Cocaine abuse, uncomplicated; Z20.822 Contact with and (suspected) exposure to COVID-19
CPT/HCPCS: 36415; 73590; 80053; 80307; 81001; 84443; 85025; 99284; U0003; 80320; G0480